=== PATIENT | female | born 1960 | race African-American/Black ===

== ENCOUNTER 2017-12-02 10:16 | Outpatient (CLI) | payer OTHER ==
--- NOTE | 2017-12-02 12:10 | RAD ---
FRONTAL VIEW CHEST: Indication: Chronic cough. Acute back pain. FINDINGS: Subtle patchy density is seen at the lateral left lung base. Right lung is clear. Cardiac silhouette is accentuated with portable technique. IMPRESSION: Subtle patchy density of the left lateral lung base, nonspecific, and incompletely assessed on the pr ovided frontal view. As necessary, this may be further evaluated with follow up dedicated two view est series. POS: [facility]
== END 2017-12-02 10:17 | disposition home or self-care (01) ==
LOC: MADRAD 10:16
PROVIDERS: ATTEND Family Medicine
DX: R05 Cough (principal)
CPT/HCPCS: 71046

== ENCOUNTER 2017-12-18 12:13 | Outpatient (CLI) | payer OTHER ==
--- NOTE | 2017-12-18 13:27 | RAD ---
CHEST PA AND LATERAL: Date: 12/18/17 HISTORY: 57-year-old female. Follow-up parenchymal density in chest. COMPARISON: 12/02/17 and 06/26/12. FINDINGS: There is a faint persistent opacity in the region of the right middle lobe and infrahilar region, whi ch is stable from 12/02/17, as well as an old exam of 06/26/12, indicating that this is a stable proc ess. Heart size is normal. The lungs are clear. IMPRESSION: Stable focal parenchymal process in the right middle lobe and infrahilar region, unchanged dating gino k to 06/26/12. POS: [facility]
== END 2017-12-18 12:14 | disposition home or self-care (01) ==
LOC: MADRAD 12:13
PROVIDERS: ATTEND Family Medicine
DX: R91.8 Other nonspecific abnormal finding of lung field (principal)
CPT/HCPCS: 71046

== ENCOUNTER 2019-03-18 19:13 | Emergency (ER) | payer OTHER ==
[2019-03-18] MEDS ORDERED: Ibuprofen 800 MG TAB ONE (19:28)
[2019-03-18] MEDS ORDERED: Penicillin V Potassium 250 MG TAB ONE ×2 (19:32→19:33)
== END 2019-03-18 19:36 | disposition home or self-care (01) ==
LOC: MADERS 19:13
DX: K04.7 Periapical abscess without sinus (principal); K02.9 Dental caries, unspecified
CPT/HCPCS: 99282

== ENCOUNTER 2019-06-20 15:11 | Emergency (ER) | payer OTHER ==
[2019-06-20] MEDS ORDERED: Ibuprofen 800 MG TAB ONE (15:31)
--- NOTE | 2019-06-20 16:22 | RAD ---
LEFT TOE THREE VIEWS: HISTORY: Injury to first and second toes. FINDINGS: There is a small bony defect in the base of the medial side of the proximal phalanx of the second toe with a probable small displaced bone chip or fragment. There is a small, somewhat elongated bony de nsity in the soft tissues medial to the first metatarsophalangeal joint, but I am not certain as to t he etiology of this. It could be some focal soft tissue calcification or ossification. I do not thi nk it represents an acute chip-type fracture, although if the patient is point tender over this regio n, that possibility can probably not be absolutely totally excluded. IMPRESSION: 1. Probable displaced chip-type fracture involving the medial base of the proximal phalanx of the se cond toe. 2. Area of soft tissue calcification or ossification medial to the first metatarsophalangeal joint w ithout a definitive associated fracture. Findings discussed with Dr. Beard in the emergency room at 4:14 p.m. CODE CR POS: OFF
== END 2019-06-20 16:34 | disposition home or self-care (01) ==
LOC: MADERS 15:11
DX: S92.512A Displaced fracture of proximal phalanx of left lesser toe(s), initial encounter for closed fracture (principal); M19.90 Unspecified osteoarthritis, unspecified site; I10 Essential (primary) hypertension; Z79.891 Long term (current) use of opiate analgesic; W01.0XXA Fall on same level from slipping, tripping and stumbling without subsequent striking against object, initial encounter

== ENCOUNTER 2019-06-24 08:34 | Outpatient (CLI) | payer OTHER ==
--- NOTE | 2019-06-24 09:32 | RAD ---
RADIOGRAPH CHEST AND LEFT RIBS 4 VIEWS: DATE: 06/24/2019 HISTORY: 59-year-old female with acute traumatic left rib pain after fall FINDINGS: The visualized lung mckinley are clear. The cardiomediastinal silhouette is within normal limits for ag e, and hilar shadows are normal. The lateral costophrenic angles are sharp. The osseous structures appear normal. There is no pneumothorax. No left rib fracture is identified. IMPRESSION: Negative.
== END 2019-06-24 08:35 | disposition home or self-care (01) ==
LOC: MADRAD 08:34
PROVIDERS: ATTEND Family Medicine
DX: R07.81 Pleurodynia (principal)

== ENCOUNTER 2021-04-19 09:11 | Outpatient (CLI) | payer OTHER | END 2021-04-19 09:12 | disposition home or self-care (01) | LOC: MADLAB 09:11 → MADRAD 09:12 | PROVIDERS: ATTEND Family Medicine | DX: M25.561 Pain in right knee (principal); M25.562 Pain in left knee; M17.11 Unilateral primary osteoarthritis, right knee; Z98.890 Other specified postprocedural states ==

== ENCOUNTER 2021-05-09 10:21 | Emergency (ER) | payer OTHER ==
[2021-05-09 11:12] LABS: Bilirubin Negative (Negative); Blood, Urine Negative (Negative); Clarity Clear (Clear); Glucose, Urine (Dipstick) Negative (Negative); Ketone, Urine Negative (Negative); Leukocyte Small (Negative); Nitrite Negative (Negative); Protein, Urine (Dipstick) Negative (Neg-Trace); pH, Urine 5.5 (5.0-9.0)
[2021-05-09 11:13] LABS: Bacteria/HPF 1+ HPF (None Seen); RBC/HPF 0-3 HPF (0-3)
[2021-05-09] MEDS ORDERED: traMADol HCl 50 MG TAB ONE (11:40)
== END 2021-05-09 11:45 | disposition home or self-care (01) ==
LOC: MADERS 10:21
DX: R10.9 Unspecified abdominal pain (principal); I10 Essential (primary) hypertension
CPT/HCPCS: 74176; 81003; 81015; 87086

== ENCOUNTER 2021-05-15 15:34 | Outpatient (CLI) | payer OTHER | END 2021-05-15 15:35 | disposition home or self-care (01) | LOC: MADRAD 15:34 | PROVIDERS: ATTEND Family Medicine | DX: M54.5 Low back pain (principal); M43.16 Spondylolisthesis, lumbar region | CPT/HCPCS: 72100 ==

== ENCOUNTER 2022-10-31 09:36 | Outpatient (CLI) | payer OTHER ==
[2022-10-31 10:09] LABS: Bilirubin Negative (Negative); Blood, Urine Negative (Negative); Clarity Clear (Clear); Glucose, Urine (Dipstick) Negative (Negative); Ketone, Urine Negative (Negative); Leukocyte Negative (Negative); Nitrite Negative (Negative); Protein, Urine (Dipstick) Negative (Neg-Trace); Urobilinogen 0.2 mg/dL (Less than 2); pH, Urine 5.5 (5.0-9.0)
[2022-10-31 10:12] LABS: #Basophils 0.1 thou/uL (0.0-0.2); #Eosinphils 0.2 thou/uL (0.0-0.7); #Lymphocytes 0.8 thou/uL (1.20-3.40); #Monocytes 0.5 thou/uL (0.11-0.59); #Neutrophils 1.6 thou/uL (1.40-6.50); %Basophils 1.8 % (0.0-1.0); %Eosinophils 5.5 % (0.0-10.0); %Monocytes 14.9 % (0.0-10.0); %Neutrophils 50.9 % (42.0-75.0); Hemoglobin 12.1 g/dL (12.0-16.0); Mean Corpuscular HGB CONC 32.5 g/dL (32.0-36.0); Mean Corpuscular Hemoglobin 27.8 pg (27.0-31.0); Mean Corpuscular Volume 85.5 fl (78.0-98.0); Mean Platelet Volume 8.9 fL (7.4-10.4); Platelet Count 153 10x3/uL (130-400); RBC Distribution Width 12.1 % (11.5-14.5); Red Blood Cell (RBC) Count 4.36 mill/uL (4.20-5.40); White Blood Cell (WBC) Count 3.1 10x3/uL (4.8-10.8)
[2022-10-31 10:13] LABS: ALT (SGPT) 41 U/L (8-55); AST (SGOT) 36 U/L (5-34); Albumin 4.2 g/dL (3.4-4.8); Alkaline Phosphatase 184 U/L (40-110); Anion Gap 13 mmol/L (10-20); BUN (Urea Nitrogen) 13 mg/dL (9.8-20.1); Bilirubin, Total 0.8 mg/dL (0.2-1.2); Calc. Creatinine Clearance 0 mL/min (70-130); Calcium 9.8 mg/dL (7.8-10.44); Carbon Dioxide 24 mmol/L (23-31); Chloride 109 mmol/L (98-107); Estimated GFR 79; Globulin 3.4 g/dL (2.4-3.5); Glucose 93 mg/dL (80-115); Potassium 4.5 mmol/L (3.5-5.1); Protein, Total 7.6 g/dL (5.8-8.1); Sodium 141 mmol/L (136-145)
[2022-10-31 10:23] LABS: Bacteria/HPF Rare-Few HPF (None Seen); RBC/HPF 0-3 HPF (0-3); Squamous Epithelial 0-3 HPF (0-3); WBC/HPF 0-3 HPF (0-3)
== END 2022-10-31 09:37 | disposition home or self-care (01) ==
LOC: MADLAB 09:36
PROVIDERS: ATTEND Family Medicine
DX: Z01.818 Encounter for other preprocedural examination (principal)
CPT/HCPCS: 36415; 71046; 80053; 81001; 85025

== ENCOUNTER 2023-06-23 13:46 | Emergency (ER) | payer OTHER ==
[2023-06-23] MEDS ORDERED: Lidocaine 1% w/Epinephrine 1:100K 20 ML VIAL ONE (14:07)
[2023-06-23] MEDS ORDERED: Boostrix 0.5 ML (Tdap) VIAL (>/=7 yrs of age) ONE (15:09)
[2023-06-23] MEDS ORDERED: Bacitracin 1 PK ONE (15:10)
== END 2023-06-23 15:48 | disposition home or self-care (01) ==
LOC: MADERS 13:46
DX: S51.811A Laceration without foreign body of right forearm, initial encounter (principal); I10 Essential (primary) hypertension; Z79.899 Other long term (current) drug therapy; Z23 Encounter for immunization; W54.0XXA Bitten by dog, initial encounter
CPT/HCPCS: 12002; 90471; 90715